=== PATIENT | female | born 1960 | race Caucasian/White ===

== ENCOUNTER 2022-04-14 00:30 | Inpatient (IN) | payer MEDICARE, OTHER ==
[2022-04-14] MEDS ORDERED: FUROSEMIDE 40 MG/4 ML INJECTABLE VIAL IVPUSH ONE (01:00)
[2022-04-14] MEDS ORDERED: FUROSEMIDE 40 MG/4 ML INJECTABLE VIAL ONE ×2 (01:06→16:40)
[2022-04-14 01:32] LABS: CHLORIDE 112 mmol/L (98-107); SODIUM 145 mmol/L (136-145)
[2022-04-14 01:34] LABS: CALCIUM 8.4 mg/dL (8.5-10.1); GLUCOSE,RANDOM 190 mg/dL (74-106)
[2022-04-14 01:35] LABS: ALBUMIN 3.8 g/dl (3.4-5.0); ANION GAP 10 MMOL/L (8-16); BLOOD UREA NITROGEN 16.9 mg/dL (7-18); CO2 24 mmol/L (21-32)
[2022-04-14 01:37] LABS: SGOT/AST 28 U/L (15-37); SGPT/ALT 30 U/L (13-61)
[2022-04-14 01:38] LABS: CREATININE 0.8 mg/dL (0.55-1.3); PHOSPHOROUS 4.4 mg/dL (2.5-4.9)
[2022-04-14 01:39] LABS: BILIRUBIN,TOTAL 0.5 mg/dL (0.2-1); TOT PROT 7.3 g/dl (6.4-8.2)
[2022-04-14 01:40] LABS: ALK PHOS 120 U/L (45-117)
[2022-04-14 01:49] LABS: BASO % 0.6 % (0-2.0); EOS % 0.6 % (0-4.5); HEMATOCRIT 33.2 % (32.4-45.2); HEMOGLOBIN 10.1 GM/dL (10.7-15.3); INR 1.21 (0.83-1.09); LYMPH % 44.9 % (8-40); MCH 20.4 pg (25.7-33.7); MCHC 30.5 g/dl (32.0-36.0); MEAN CELL VOLUME 66.7 fl (80-96); MEAN PLT VOLUME 9.5 fl (7.5-11.1); MONO % 5.3 % (3.8-10.2); NEUT % 48.6 % (42.8-82.8); PLATELET COUNT 313 10^3/uL (134-434); RBC 4.98 M/mm3 (3.60-5.2); RDW 18.1 % (11.6-15.6)
[2022-04-14 01:52] LABS: ACTIVATED PTT 24.5 SECONDS (25.2-36.5)
[2022-04-14 03:04] LABS: ANISOCYTOSIS 2+; MACROCYTOSIS 0; TEAR DROP CELLS 1+
[2022-04-14 03:21] LABS: ARTERIAL BLD GAS O2 SATURATION 98.7 % (95-98); ARTERIAL BLOOD GAS BASE EXCESS -5.8 mmol/L (-2-2); ARTERIAL BLOOD GAS PO2 138.5 mmHg (80-100); ARTERIAL BLOOD GAS pH 7.377 (7.350-7.450)
[2022-04-14 03:23] LABS: ALLENS TEST POSITIVE
[2022-04-14 03:24] LABS: VENT MODE ST; VENT RATE 14
[2022-04-14 06:37] LABS: ALBUMIN 3.4 g/dl (3.4-5.0); BLOOD UREA NITROGEN 13.9 mg/dL (7-18); MAGNESIUM 1.8 mg/dL (1.8-2.4)
[2022-04-14 06:40] LABS: CREATININE 0.7 mg/dL (0.55-1.3); PHOSPHOROUS 3.1 mg/dL (2.5-4.9)
[2022-04-14 06:41] LABS: BILIRUBIN,TOTAL 0.7 mg/dL (0.2-1); TOT PROT 6.6 g/dl (6.4-8.2)
[2022-04-14 06:49] LABS: PH,URINE 5.5 (5.0-8.0); URINE APPEARANCE CLEAR; URINE BILIRUBIN NEGATIVE (NEGATIVE); URINE COLOR YELLOW; URINE GLUCOSE (UA) NEGATIVE (NEGATIVE); URINE KETONE NEGATIVE (NEGATIVE); URINE LEUK ESTERASE NEGATIVE (NEGATIVE); URINE NITRITE NEGATIVE (NEGATIVE); URINE PROTEIN NEGATIVE (NEGATIVE); URINE UROBILINOGEN 0.2 mg/dL (0.2-1.0)
[2022-04-14 09:02] LABS: BASO % 0.6 % (0-2.0); EOS % 0.2 % (0-4.5); HEMATOCRIT 26.9 % (32.4-45.2); HEMOGLOBIN 8.4 GM/dL (10.7-15.3); LYMPH % 24.9 % (8-40); MCH 20.5 pg (25.7-33.7); MCHC 31.2 g/dl (32.0-36.0); MEAN CELL VOLUME 65.6 fl (80-96); MEAN PLT VOLUME 9.7 fl (7.5-11.1); MONO % 7.5 % (3.8-10.2); NEUT % 66.8 % (42.8-82.8); PLATELET COUNT 200 10^3/uL (134-434); RDW 17.7 % (11.6-15.6); WHITE BLOOD COUNT 4.7 K/mm3 (4.0-10.0)
[2022-04-14] MEDS ORDERED: DEXAMETHASONE SOD PHOSPHATE 4 MG/1 ML VIAL ONE (09:41)
[2022-04-14] MEDS: DEXAMETHASONE SOD PHOSPHATE 4 MG/1 ML VIAL IVPUSH SCH (09:47)
[2022-04-14] MEDS: ENOXAPARIN NA (PORCINE) 40 MG/0.4 ML DISP.SYRIN SQ SCH (09:47)
[2022-04-14] MEDS ORDERED: REMDESIVIR 200 MG in SODIUM CHLORIDE 250 ML IVPB ONE (10:00)
[2022-04-14] MEDS: FUROSEMIDE 40 MG/4 ML INJECTABLE VIAL IVPUSH SCH (16:37)
[2022-04-14 23:25] VITALS: BMI 36.2
[2022-04-15] MEDS: FUROSEMIDE 40 MG/4 ML INJECTABLE VIAL IVPUSH SCH (06:25)
[2022-04-15 07:18] LABS: BASO % 0.1 % (0-2.0); HEMATOCRIT 29.1 % (32.4-45.2); HEMOGLOBIN 8.9 GM/dL (10.7-15.3); LYMPH % 21.9 % (8-40); MCH 20.3 pg (25.7-33.7); MCHC 30.7 g/dl (32.0-36.0); MEAN CELL VOLUME 66.3 fl (80-96); MEAN PLT VOLUME 9.7 fl (7.5-11.1); MONO % 6.3 % (3.8-10.2); NEUT % 71.7 % (42.8-82.8); PLATELET COUNT 203 10^3/uL (134-434); RBC 4.39 M/mm3 (3.60-5.2); RDW 18.1 % (11.6-15.6); WHITE BLOOD COUNT 5.1 K/mm3 (4.0-10.0)
[2022-04-15 07:41] LABS: CALCIUM 8.8 mg/dL (8.5-10.1)
[2022-04-15 07:42] LABS: ALBUMIN 3.5 g/dl (3.4-5.0); BLOOD UREA NITROGEN 20.2 mg/dL (7-18); MAGNESIUM 2.1 mg/dL (1.8-2.4)
[2022-04-15 07:45] LABS: CREATININE 0.6 mg/dL (0.55-1.3)
[2022-04-15 07:47] LABS: BILIRUBIN,TOTAL 0.9 mg/dL (0.2-1); TOT PROT 6.6 g/dl (6.4-8.2)
[2022-04-15] MEDS: ENOXAPARIN NA (PORCINE) 40 MG/0.4 ML DISP.SYRIN SQ SCH (10:05)
[2022-04-15] MEDS: DEXAMETHASONE SOD PHOSPHATE 4 MG/1 ML VIAL IVPUSH SCH (10:05)
[2022-04-15] MEDS: REMDESIVIR 100 MG in SODIUM CHLORIDE 250 ML IVPB SCH (10:05)
[2022-04-15] MEDS ORDERED: IRON SUCROSE INJECTION 200 MG in SODIUM CHLORIDE 90 ML IVPB ONE (13:00)
[2022-04-16] MEDS ORDERED: FUROSEMIDE 40 MG/4 ML INJECTABLE VIAL IVPUSH SCH (10:00)
[2022-04-16] MEDS: DEXAMETHASONE SOD PHOSPHATE 4 MG/1 ML VIAL IVPUSH SCH (11:01)
[2022-04-16] MEDS: ENOXAPARIN NA (PORCINE) 40 MG/0.4 ML DISP.SYRIN SQ SCH (11:02)
[2022-04-16] MEDS: REMDESIVIR 100 MG in SODIUM CHLORIDE 250 ML IVPB SCH (12:19)
[2022-04-17 09:31] LABS: BASO % 0.3 % (0-2.0); EOS % 0.4 % (0-4.5); HEMATOCRIT 33.6 % (32.4-45.2); HEMOGLOBIN 10.3 GM/dL (10.7-15.3); LYMPH % 34.3 % (8-40); MCH 20.4 pg (25.7-33.7); MCHC 30.8 g/dl (32.0-36.0); MEAN CELL VOLUME 66.3 fl (80-96); MEAN PLT VOLUME 9.5 fl (7.5-11.1); MONO % 3.9 % (3.8-10.2); NEUT % 61.1 % (42.8-82.8); PLATELET COUNT 294 10^3/uL (134-434); RBC 5.06 M/mm3 (3.60-5.2); WHITE BLOOD COUNT 9.5 K/mm3 (4.0-10.0)
[2022-04-17] MEDS: DEXAMETHASONE SOD PHOSPHATE 4 MG/1 ML VIAL IVPUSH SCH (09:59)
[2022-04-17] MEDS: ENOXAPARIN NA (PORCINE) 40 MG/0.4 ML DISP.SYRIN SQ SCH (09:59)
[2022-04-17] MEDS ORDERED: FUROSEMIDE 40 MG TABLET (FP) PO SCH (10:00)
[2022-04-17] MEDS: REMDESIVIR 100 MG in SODIUM CHLORIDE 250 ML IVPB SCH (10:04)
[2022-04-17 10:09] LABS: ANISOCYTOSIS 2+; MACROCYTOSIS 0
[2022-04-17 10:42] LABS: CALCIUM 8.8 mg/dL (8.5-10.1)
[2022-04-17 10:43] LABS: BLOOD UREA NITROGEN 15.5 mg/dL (7-18)
[2022-04-17 10:46] LABS: CREATININE 0.6 mg/dL (0.55-1.3)
[2022-04-18] MEDS: BACITRACIN 15 GM TUBE TOPICAL OINTMENT TP SCH ×2 (01:59→10:29)
[2022-04-18 08:47] VITALS: RESP 18
[2022-04-18 08:49] VITALS: BP 135/71; PULSE 94; TEMP 97.6
[2022-04-18 09:48] LABS: BASO % 0.5 % (0-2.0); EOS % 0.8 % (0-4.5); HEMATOCRIT 30.3 % (32.4-45.2); HEMOGLOBIN 9.2 GM/dL (10.7-15.3); LYMPH % 37.5 % (8-40); MCH 20.5 pg (25.7-33.7); MCHC 30.4 g/dl (32.0-36.0); MEAN CELL VOLUME 67.5 fl (80-96); MEAN PLT VOLUME 10.1 fl (7.5-11.1); MONO % 7.6 % (3.8-10.2); NEUT % 53.6 % (42.8-82.8); PLATELET COUNT 251 10^3/uL (134-434); RBC 4.49 M/mm3 (3.60-5.2); RDW 18.4 % (11.6-15.6); WHITE BLOOD COUNT 5.8 K/mm3 (4.0-10.0)
[2022-04-18] MEDS ORDERED: FUROSEMIDE 40 MG TABLET (FP) PO SCH (10:00)
[2022-04-18] MEDS ORDERED: DEXAMETHASONE 4 MG TABLET (FP) PO SCH (10:00)
[2022-04-18] MEDS ORDERED: ENOXAPARIN NA (PORCINE) 40 MG/0.4 ML DISP.SYRIN SQ SCH (10:00)
[2022-04-18 10:06] LABS: CALCIUM 8.6 mg/dL (8.5-10.1)
[2022-04-18 10:07] LABS: ALBUMIN 3.3 g/dl (3.4-5.0); MAGNESIUM 2.2 mg/dL (1.8-2.4)
[2022-04-18 10:10] LABS: CREATININE 0.6 mg/dL (0.55-1.3)
[2022-04-18 10:11] LABS: BILIRUBIN,TOTAL 0.4 mg/dL (0.2-1); TOT PROT 6.3 g/dl (6.4-8.2)
[2022-04-18] MEDS ORDERED: REMDESIVIR 100 MG in SODIUM CHLORIDE 250 ML IVPB SCH (11:00)
== END 2022-04-18 16:00 | disposition home or self-care (01) | DRG 177 ==
LOC: JER 00:30 → JERBED 02:51 → J4S 22:23 → J8W 04-17 15:32
PROVIDERS: ADMIT Internal Medicine; ATTEND Internal Medicine
PROC: XW033E5 Introduction of Remdesivir Anti-infective into Peripheral Vein, Percutaneous Approach, New Technology Group 5 (ICD-10-PCS; principal; 2022-04-14)
DX: U07.1 COVID-19 (principal); J96.01 Acute respiratory failure with hypoxia; E87.20 Acidosis, unspecified; I50.9 Heart failure, unspecified; D50.9 Iron deficiency anemia, unspecified; D56.9 Thalassemia, unspecified
CPT/HCPCS: 0241U-QW; 36415; 36600; 71045-TC-FY; 80048; 80053; 80061; 81003; 82550; 82728; 82803; 83036; 83540; 83550; 83605; 83615; 83735; 83880; 84100; 84443; 84484; 85025; 85610; 85730; 86140; 86850; 86900; 86901; 87086; 93005; 93010; 94660; 94761; 97116-GP; 97161-GP; 99285-25; C9399; J1756

== ENCOUNTER 2023-05-12 11:17 | Day surgery (SDC) | payer OTHER ==
[2023-05-12] MEDS ORDERED: FERRIC CARBOXYMALTOSE 750 MG in SODIUM CHLORIDE 250 ML IVPB ONE (12:00)
[2023-05-12 12:27] VITALS: BP 122/50; PULSE 80; RESP 18; TEMP 98
== END 2023-05-12 12:28 | disposition home or self-care (01) ==
LOC: FINFUSION 11:17 → FINJECTION 11:17 → FM/S 11:18 → FINJECTION 12:28
PROVIDERS: ATTEND Family Medicine
PROC: 3E033GC Introduction of Other Therapeutic Substance into Peripheral Vein, Percutaneous Approach (ICD-10-PCS; principal; 2023-05-12)
DX: D50.9 Iron deficiency anemia, unspecified (principal)
CPT/HCPCS: 96365; J1439

== ENCOUNTER 2023-05-19 10:54 | Day surgery (SDC) | payer OTHER ==
[2023-05-19] MEDS ORDERED: FERRIC CARBOXYMALTOSE 750 MG in SODIUM CHLORIDE 250 ML IVPB ONE (12:00)
[2023-05-19 14:14] VITALS: BP 112/63; PULSE 78; RESP 18; TEMP 97.6
== END 2023-05-19 13:30 | disposition home or self-care (01) ==
LOC: FINFUSION 10:54 → FINJECTION 10:54 → FM/S 10:55 → FINJECTION 13:30
PROVIDERS: ATTEND Family Medicine
PROC: 3E033GC Introduction of Other Therapeutic Substance into Peripheral Vein, Percutaneous Approach (ICD-10-PCS; principal; 2023-05-19)
DX: D50.9 Iron deficiency anemia, unspecified (principal)
CPT/HCPCS: 96365; J1439